=== PATIENT | male | born 1970 | race Caucasian/White ===

== ENCOUNTER 2016-12-02 20:03 | Emergency (ER) | payer OTHER ==
[~2016-12-02] VITALS: Ht 175.3 cm; Wt 85.0 kg
[2016-12-02 20:14] VITALS: Ht 175.3 cm; Wt 85.0 kg
[2016-12-02] MEDS ORDERED: KETOROLAC 30 MG INJ IM STA (21:33)
--- NOTE | 2016-12-02 22:48 | RADRPT ---
PROCEDURE: Lumbar Spine. CLINICAL INDICATION: Back pain. TECHNIQUE: Three views of the lumbar spine. COMPARISON: None available FINDINGS: There is minimal leftward curvature of the lumbar spine, possibly positional. The lumbar lordosis i s preserved. There is grade 1 degenerative L1 retrolisthesis. The vertebral body heights are maintai mary. No acute fracture or subluxation is seen. Mild to moderate disk space narrowing is noted at L5 -S1. IMPRESSION: 1. No acute fracture or subluxation. 2. Grade 1 degenerative L1 retrolisthesis. 3. Mild to moderate disk space narrowing at L5-S1. RPTAT: HTAR .Tereso Lundberg MD, MD Date Time Electronically viewed and signed by .Tereso Lundberg MD, on 12/02/2016 22:48 .R/
[2016-12-02] MEDS ORDERED: NAPR-260 PO (23:22)
[2016-12-02] MEDS ORDERED: CYCL-319 PO (23:23)
[2016-12-02 23:40] VITALS: BP 128/78; PULSE 68; RESP 20; TEMP 98.1
--- NOTE | 2016-12-04 17:16 | ERD ---
ER Documentation Chief Complaint Date/Time DATE: 12/04/16 TIME: 16:44 Chief Complaint lower back pain radiating to right leg, hx of herniated disc HPI This patient is a 46-year-old male presenting to the emergency department with complaints of bilateral low back pain with radiation of the right leg which began 3 days ago after lifting injury. The patient denies loss of bowel or bladder function, fevers, chills, dizziness, loss of feeling in the lower legs, or other symptoms. There is no blunt trauma to the area. The patient does have past medical history of herniated disc more than 10 years ago. Aggravating factors include bending. Alleviating factors include rest. The patient is taken no medication for relief of symptoms. ROS All systems reviewed and are negative except as per history of present illness. Medications Home Meds Active Scripts Cyclobenzaprine Hcl* (Cyclobenzaprine Hcl*) 10 Mg Tablet, 10 MG PO TID, #15 TAB Prov:MUKUND PAZ PA-C 12/02/16 Naproxen* (Naprosyn*) 500 Mg Tablet, 500 MG PO BID Y for PAIN AND/OR INFLAMMATION, #30 TAB Prov:MUKUND PAZ PA-C 12/02/16 Allergies Allergies: Coded Allergies: No Known Drug Allergies (Verified Allergy, Unknown, 12/02/16) PMhx/Soc Medical and Surgical Hx: pt denies Medical Hx Hx Alcohol Use: No Hx Substance Use: No Hx Tobacco Use: No Physical Exam Vitals Vital Signs Date Time Temp Pulse Resp B/P Pulse Ox O2 Delivery O2 Flow Rate FiO2 12/02/16 23:40 98.1 68 20 128/78 99 12/02/16 20:14 97.8 81 20 133/88 99 Physical Exam Const: Nontoxic, well-appearing male in no acute distress. Head: Atraumatic Eyes: Normal Conjunctiva ENT: Normal External Ears, Nose and Mouth. Neck: Full range of motion..~ No meningismus. Resp: Clear to auscultation bilaterally Cardio: Regular rate and rhythm, no murmurs Abd: Soft, non tender, non distended. Normal bowel sounds Skin: No petechiae or rashes Back: No midline or flank tenderness. There is positive straight leg raise bilaterally. No step-offs noted. Ext: No cyanosis, or edema Neur: Awake and alert Psych: Normal Mood and Affect Results 24 hrs Current Medications Medications (Trade) Dose Ordered Sig/Katrina Route PRN Reason Start Time Stop Time Status Last Admin Dose Admin Ketorolac Tromethamine (Toradol) 30 mg ONCE STAT IM 12/02/16 21:33 12/02/16 21:34 DC 12/02/16 22:04 [place] [id number] Radiology Main Line: [phone] DIAGNOSTIC IMAGING REPORT Patient: JULI KELLER : 1970 Age: 46 Sex: M MR #: [id number] DOS: 12/02/16 0000 Ordering MD: MUKUND PAZ PA-C Location: [facility] Room/Bed: PROCEDURE: Lumbar Spine. CLINICAL INDICATION: Back pain. TECHNIQUE: Three views of the lumbar spine. COMPARISON: None available FINDINGS: There is minimal leftward curvature of the lumbar spine, possibly positional. The lumbar lordosis is preserved. There is grade 1 degenerative L1 retrolisthesis. The vertebral body heights are maintained. No acute fracture or subluxation is seen. Mild to moderate disk space narrowing is noted at L5-S1. IMPRESSION: 1. No acute fracture or subluxation. 2. Grade 1 degenerative L1 retrolisthesis. 3. Mild to moderate disk space narrowing at L5-S1. RPTAT: HTAR .Tereso Lundberg MD, MD Date Time Electronically viewed and signed by .Tereso Lundberg MD, MD on 12/02/2016 22:48 .R/ CC: MUKUND PAZ PA-C Procedures/[facility] 46-year-old male presents to the emergency department with complaints of low back pain. On physical examination the patient does have positive straight leg raise bilaterally. The patient was medicated in the department with IM Toradol and he was feeling much improved on reevaluation. Blood pressure was slightly elevated at 133/88 which may be due to acute pain. Patient's blood pressure was elevated (>120/80) but appears stable without evidence of hypertension emergency or urgency. The patient was counseled about the risks of hypertension and urged to pursue outpatient monitoring and therapy within a week with their primary care physician. X-rays were negative for acute findings and interpreted by the radiologist. The patient stable for outpatient management with close follow-up with his primary care physician. He was given a prescription for Flexeril and naproxen. His questions and concerns were addressed. He agreed with the discharge plan and diagnosis. Strict ER return precautions were discussed. I have low suspicion for cauda equina, epidural abscess, sepsis, or other emergent conditions. Departure Diagnosis: Primary Impression: Back pain Condition: Fair Patient Instructions: Back Pain (Acute Or Chronic) Referrals: [facility] YOU HAVE RECEIVED A MEDICAL SCREENING EXAM AND THE RESULTS INDICATE THAT YOU DO NOT HAVE A CONDITION THAT REQUIRES URGENT TREATMENT IN THE EMERGENCY DEPARTMENT. FURTHER EVALUATION AND TREATMENT OF YOUR CONDITION CAN WAIT UNTIL YOU ARE SEEN IN YOUR DOCTORS OFFICE WITHIN THE NEXT 1-2 DAYS. IT IS YOUR RESPONSIBILITY TO MAKE AN APPOINTMENT FOR FOLOW-UP CARE. IF YOU HAVE A PRIMARY DOCTOR --you should call your primary doctor and schedule an appointment IF YOU DO NOT HAVE A PRIMARY DOCTOR YOU CAN CALL OUR PHYSICIAN REFERRAL HOTLINE AT IF YOU CAN NOT AFFORD TO SEE A PHYSICIAN YOU CAN CHOSE FROM THE FOLLOWING [facility] [address] [facility] [facility]. [facility] [address] [facility] [facility] [address] [facility] [facility] [address] [facility]. [facility] [address] [facility]. [facility]. [address] Additional Instructions: Follow up with your PCP within the next 1-3 days for a repeat evaluation. If you require a referral to a specialist, your Primary Care Provider may be able to provide this for you. In most patient cases, a referral is not required. If you have further questions regarding this matter, please ask your Primary Care Provider. Return the the emergency department immediately if symptoms worsen or change. If you have any questions regarding medications, ask your pharmacist or us before you leave. If any adverse reactions, occur while taking your medications, discontinue the treatment and return to the emergency department immediately. If any new or worsening symptoms, uncontrolled fevers, or other unexplained symptoms occur, return to the emergency department immediately. Take your medications as directed, and complete the entire course of treatment. MKUUND PAZ PA-C Dec 04, 2016 17:16
== END 2016-12-02 23:42 | disposition home or self-care (01) ==
LOC: FTE 20:03
DX: M54.5 Low back pain (principal)
CPT/HCPCS: 72100; 96372; J1885; Z7502